=== PATIENT | female | born 1935 | race Caucasian/White ===

== ENCOUNTER 2017-06-23 10:18 | Emergency (ER) | payer OTHER, BC ==
[2017-06-23] MEDS ORDERED: RANITIDINE HCL 150 MG TABLET (FP) PO ONE (10:23)
[2017-06-23] MEDS ORDERED: predniSONE 20 MG TABLET (UD) PO ONE (10:23)
--- NOTE | 2017-06-23 10:29 | PDOC ---
History of Present Illness - General Chief Complaint: Bite Stated Complaint: BEE STING OF RIGHT HAND Time Seen by Provider: 06/23/17 10:23 History Source: Patient Exam Limitations: No Limitations - History of Present Illness Initial Comments: 06/23/17 10:25 81 yo with asthma and htn was stung by three bees on the dorsum of the right hand. More swollen and red today than last night. No associated signs or symptoms. Timing/Duration: 24 hours, intermittent Modifying Factors: improves with: other (took benadryl, used ice) Past History - Past Medical History Allergies/Adverse Reactions: Allergies Allergy/AdvReac Type Severity Reaction Status Date / Time No Known Allergies Allergy Verified 06/23/17 10:28 Home Medications: Ambulatory Orders Calcium Carbonate [Calcium] 1,000 mg PO DAILY 06/23/17 Cholecalciferol (Vitamin D3) [Vitamin D3] 2,000 unit PO DAILY 06/23/17 Hydralazine HCl 100 mg PO DAILY 06/23/17 Losartan/Hydrochlorothiazide [Losartan-Hctz 100-25 mg Tab] 1 each PO DAILY 06/23 Methylprednisolone [Medrol Dose Magdaleno] 4 mg PO ASDIR #21 tablet 06/23/17 Metoprolol Tartrate [Lopressor] 100 mg PO BID 06/23/17 Multivit-Min/FA/Lycopen/Lutein [Centrum Silver Tablet] 1 each PO DAILY 06/23/17 Ranitidine [Zantac -] 150 mg PO QID #40 tablet 06/23/17 Simvastatin [Zocor -] 20 mg PO HS 06/23/17 Review of Systems - Review of Systems Able to Perform ROS?: Yes Is the patient limited Bulgarian proficient: No Constitutional: No: Symptoms Reported HEENTM: No: Symptoms Reported Respiratory: No: Symptoms reported Cardiac (ROS): No: Symptoms Reported ABD/GI: No: Symptoms Reported : No: Symptoms Reported Musculoskeletal: No: Symptoms Reported Integumentary: Yes: See HPI Neurological: No: Symptoms reported Psychiatric: Yes: Anxiety. No: Depression Endocrine: No: Symptoms Reported Hematologic/Lymphatic: No: Symptoms Reported All Other Systems: Reviewed and Negative *Physical Exam - Physical Exam Comments: 06/23/17 10:27 VSS, NAD, ANXIOUS, HYPERTENSIVE HEENT NO ANGIOEDEMA NECK SUPPLE CHEST CTA NO WHEEZES HEART RRR, No MURMUR ABD SOFT AND BENIGN EXTR: RIGHT HAND AND FOREARM, LOCAL TISSUE REACTION TO INSECT VENOM, EXTENDS TO ELBOW, LIMB NV INTACT DISTALLY, NOT CIRCUMFRENTIAL *DC/Admit/Observation/Transfer Diagnosis at time of Disposition: Localized soft tissue swelling Insect bite Qualifiers: Encounter type: initial encounter Qualified Code(s): W57.XXXA - Bitten or stung by nonvenomous insect and other nonvenomous arthropods, initial encounter ; W57.XXXA - Bitten or stung by nonvenomous insect and other nonvenomous arthropods, initial encounter - Discharge Dispostion Disposition: HOME Condition at time of disposition: Good - Referrals Referrals: Saima Emanuel [Primary Care Provider] - - Patient Instructions Printed Discharge Instructions: DI for Insect Bites and Stings, How to Care for an Insect Bite or Sting Additional Instructions: M[facility] ANDREW MONTANO THIS HAPPENED TO YOU. This is a localized reaction to the bee venom. It may get just a little worse before it gets better. Return to us if worse or new symptoms occur. See Dr. Emanuel later this week. Take the Zantac four times a day. The Medrol is a blister pack, one less pill each day for a total of five days. You can start it tomorrow. You can also take 25 to 50mg (one or two) capsules of over the counter benadryl, especially if you have itching. Best- Dr. Jeff De Dios
[2017-06-23 10:30] VITALS: BP 163/75; PULSE 78; TEMP 99.1; BMI 25.2
[2017-06-23] MEDS ORDERED: RANITIDINE HCL 150 MG TABLET (FP) ONE (10:32)
[2017-06-23] MEDS ORDERED: predniSONE 20 MG TABLET (UD) ONE (10:32)
== END 2017-06-23 10:41 | disposition home or self-care (01) ==
LOC: FER 10:18
DX: S60.561A Insect bite (nonvenomous) of right hand, initial encounter (principal); R22.31 Localized swelling, mass and lump, right upper limb; W57.XXXA Bitten or stung by nonvenomous insect and other nonvenomous arthropods, initial encounter; Y93.9 Activity, unspecified; Y92.9 Unspecified place or not applicable; I10 Essential (primary) hypertension; F41.9 Anxiety disorder, unspecified
CPT/HCPCS: 99281-25

== ENCOUNTER 2023-07-04 13:09 | Inpatient (IN) | payer OTHER, BC ==
[2023-07-04] MEDS ORDERED: ACETAMINOPHEN 1000 MG/100 ML BAG IVPB ONE (14:23)
[2023-07-04] MEDS ORDERED: ACETAMINOPHEN INJECTION 100 ML IVPB ONE (14:40)
[2023-07-04] MEDS ORDERED: METOPROLOL TARTRATE 50 MG TABLET (FP) PO ONE (14:44)
[2023-07-04] MEDS ORDERED: hydrALAZINE HCL 50 MG TABLET (FP) PO ONE (14:45)
[2023-07-04] MEDS ORDERED: METOPROLOL TARTRATE 50 MG TABLET (FP) ONE (14:48)
[2023-07-04] MEDS ORDERED: hydrALAZINE HCL 50 MG TABLET (FP) ONE (14:48)
[2023-07-04 14:54] LABS: BASO % 0.3 % (0-2.0); EOS % 0.3 % (0-4.5); HEMATOCRIT 24.5 % (32.4-45.2); HEMOGLOBIN 8.1 GM/dL (10.7-15.3); LYMPH % 12.8 % (8-40); MCH 29.4 pg (25.7-33.7); MCHC 33.2 g/dl (32.0-36.0); MEAN CELL VOLUME 88.5 fl (80-96); MEAN PLT VOLUME 8.4 fl (7.5-11.1); MONO % 9.1 % (3.8-10.2); NEUT % 77.5 % (42.8-82.8); PLATELET COUNT 270 10^3/uL (134-434); RBC 2.77 M/mm3 (3.60-5.2); RDW 14.9 % (11.6-15.6); WHITE BLOOD COUNT 10.8 K/mm3 (4.0-10.0)
[2023-07-04 14:58] LABS: INR 1.07 (0.83-1.09); PROTHROMBIN TIME (PATIENT) 12.4 SEC (9.7-13.0)
[2023-07-04 15:00] LABS: ACTIVATED PTT 23.6 SECONDS (25.2-36.5)
[2023-07-04 15:21] LABS: POTASSIUM 3.3 mmol/L (3.5-5.1)
[2023-07-04 15:24] LABS: CALCIUM 8.6 mg/dL (8.5-10.1)
[2023-07-04 15:25] LABS: ALBUMIN 3.1 g/dl (3.4-5.0); BLOOD UREA NITROGEN 24.2 mg/dL (7-18)
[2023-07-04 15:28] LABS: CREATININE 0.9 mg/dL (0.55-1.3)
[2023-07-04 15:31] LABS: TOT PROT 6.7 g/dl (6.4-8.2)
[2023-07-04 16:58] LABS: EPI CELLS 7 /uL (0-25.1); HYALINE CASTS 0 /uL (0-3.1); URINE APPEARANCE CLEAR; URINE BACTERIA 49 /uL (0-1359); URINE BILIRUBIN NEGATIVE (NEGATIVE); URINE COLOR YELLOW; URINE GLUCOSE (UA) NEGATIVE (NEGATIVE); URINE KETONE TRACE (NEGATIVE); URINE LEUK ESTERASE NEGATIVE (NEGATIVE); URINE NITRITE NEGATIVE (NEGATIVE); URINE PROTEIN 1+ (NEGATIVE); URINE RBC 24 /uL (0-23.9); URINE WBC 7 /uL (0-25.8)
[2023-07-04] MEDS: hydrALAZINE HCL 50 MG TABLET (FP) PO SCH (21:32)
[2023-07-04] MEDS: METOPROLOL TARTRATE 50 MG TABLET (FP) PO SCH (21:33)
[2023-07-04] MEDS: ATORVASTATIN CA 10 MG TABLET (FP) PO SCH (21:33)
[2023-07-05 08:02] LABS: BASO % 0.4 % (0-2.0); EOS % 0.7 % (0-4.5); HEMATOCRIT 26.6 % (32.4-45.2); HEMOGLOBIN 8.9 GM/dL (10.7-15.3); LYMPH % 12.6 % (8-40); MCH 29.4 pg (25.7-33.7); MCHC 33.3 g/dl (32.0-36.0); MEAN CELL VOLUME 88.3 fl (80-96); MEAN PLT VOLUME 8.6 fl (7.5-11.1); MONO % 7.6 % (3.8-10.2); NEUT % 78.7 % (42.8-82.8); PLATELET COUNT 348 10^3/uL (134-434); RBC 3.01 M/mm3 (3.60-5.2); RDW 14.9 % (11.6-15.6); WHITE BLOOD COUNT 10.4 K/mm3 (4.0-10.0)
[2023-07-05 08:18] LABS: POTASSIUM 3.6 mmol/L (3.5-5.1)
[2023-07-05 08:23] LABS: ALBUMIN 3.1 g/dl (3.4-5.0); BLOOD UREA NITROGEN 21.1 mg/dL (7-18)
[2023-07-05 08:26] LABS: CREATININE 0.8 mg/dL (0.55-1.3)
[2023-07-05 08:28] LABS: BILIRUBIN,TOTAL 1.3 mg/dL (0.2-1); TOT PROT 6.7 g/dl (6.4-8.2)
[2023-07-05] MEDS ORDERED: PATIENT'S OWN MEDICATION (NON-FORMULARY) (Losartan/Hydrochlorothiazide [Losartan-Hctz 100- PO SCH (10:00)
[2023-07-05] MEDS ORDERED: FAMOTIDINE 40 MG TABLET PO SCH (10:00)
[2023-07-05] MEDS: CALCIUM (OYSTER SHELL) 500 MG TABLET (FP) PO SCH (10:09)
[2023-07-05] MEDS: METOPROLOL TARTRATE 50 MG TABLET (FP) PO SCH ×2 (10:10→21:14)
[2023-07-05] MEDS: hydrALAZINE HCL 50 MG TABLET (FP) PO SCH ×2 (10:10→21:14)
[2023-07-05] MEDS: HYDROCHLOROTHIAZIDE 25 MG TABLET (FP) PO SCH (10:11)
[2023-07-05] MEDS: MULTIVITAMINS THER W-MINERALS COMBO TABLET (FP) PO SCH (10:11)
[2023-07-05] MEDS: CHOLECALCIFEROL (VIT D3) 1,000 UNIT (25 MCG) TABLET PO SCH (10:11)
[2023-07-05] MEDS ORDERED: FAMOTIDINE 20 MG TABLET PO SCH (10:32)
[2023-07-05] MEDS: LOSARTAN POTASSIUM 50 MG TABLET PO SCH (10:56)
[2023-07-05] MEDS: FAMOTIDINE 20 MG TABLET PO SCH (16:38)
[2023-07-05] MEDS: HEPARIN NA (PORCINE) 5,000 UNITS/ML 1ML VIAL SQ SCH (21:14)
[2023-07-05] MEDS: ATORVASTATIN CA 10 MG TABLET (FP) PO SCH (21:14)
[2023-07-06] MEDS: hydrALAZINE HCL 50 MG TABLET (FP) PO SCH ×3 (05:39→21:23)
[2023-07-06] MEDS: LOSARTAN POTASSIUM 50 MG TABLET PO SCH ×2 (05:39→09:01)
[2023-07-06] MEDS: METOPROLOL TARTRATE 50 MG TABLET (FP) PO SCH ×2 (09:00→21:23)
[2023-07-06] MEDS: CALCIUM (OYSTER SHELL) 500 MG TABLET (FP) PO SCH (09:01)
[2023-07-06] MEDS: FAMOTIDINE 20 MG TABLET PO SCH (09:01)
[2023-07-06] MEDS: HEPARIN NA (PORCINE) 5,000 UNITS/ML 1ML VIAL SQ SCH ×2 (09:01→21:22)
[2023-07-06] MEDS: HYDROCHLOROTHIAZIDE 25 MG TABLET (FP) PO SCH (09:01)
[2023-07-06] MEDS: MULTIVITAMINS THER W-MINERALS COMBO TABLET (FP) PO SCH (09:01)
[2023-07-06] MEDS: CHOLECALCIFEROL (VIT D3) 1,000 UNIT (25 MCG) TABLET PO SCH (09:01)
[2023-07-06 09:13] LABS: BASO % 0.2 % (0-2.0); EOS % 0.3 % (0-4.5); HEMATOCRIT 28.6 % (32.4-45.2); HEMOGLOBIN 9.6 GM/dL (10.7-15.3); MCH 29.1 pg (25.7-33.7); MCHC 33.5 g/dl (32.0-36.0); MEAN CELL VOLUME 86.8 fl (80-96); MEAN PLT VOLUME 8.6 fl (7.5-11.1); MONO % 7.8 % (3.8-10.2); NEUT % 80.7 % (42.8-82.8); PLATELET COUNT 393 10^3/uL (134-434); RDW 14.7 % (11.6-15.6); WHITE BLOOD COUNT 13.9 K/mm3 (4.0-10.0)
[2023-07-06 09:38] LABS: POTASSIUM 3.3 mmol/L (3.5-5.1)
[2023-07-06 09:40] LABS: CALCIUM 9.2 mg/dL (8.5-10.1)
[2023-07-06 09:41] LABS: ALBUMIN 3.2 g/dl (3.4-5.0); BLOOD UREA NITROGEN 22.7 mg/dL (7-18)
[2023-07-06 09:46] LABS: TOT PROT 7.1 g/dl (6.4-8.2)
[2023-07-06 09:47] LABS: BILIRUBIN,TOTAL 1.8 mg/dL (0.2-1)
[2023-07-06] MEDS: CEPHALEXIN MONOHYDRATE 500 MG CAPSULE (UD) PO SCH ×2 (13:48→21:23)
[2023-07-06] MEDS: POTASSIUM CHLORIDE TABS 10 MEQ TABLET.ER (FP) PO SCH (14:49)
[2023-07-06] MEDS: ATORVASTATIN CA 10 MG TABLET (FP) PO SCH (21:23)
[2023-07-07] MEDS: ACETAMINOPHEN 325 MG TABLET (FP) PO PRN (04:02)
[2023-07-07] MEDS: CEPHALEXIN MONOHYDRATE 500 MG CAPSULE (UD) PO SCH ×3 (05:30→21:09)
[2023-07-07 08:39] LABS: POTASSIUM 3.3 mmol/L (3.5-5.1)
[2023-07-07 08:56] LABS: CALCIUM 9.1 mg/dL (8.5-10.1)
[2023-07-07 08:57] LABS: ALBUMIN 2.9 g/dl (3.4-5.0); BLOOD UREA NITROGEN 21.2 mg/dL (7-18)
[2023-07-07 08:58] LABS: BASO % 0.3 % (0-2.0); EOS % 0.1 % (0-4.5); HEMATOCRIT 27.4 % (32.4-45.2); LYMPH % 7.5 % (8-40); MCH 28.8 pg (25.7-33.7); MCHC 32.7 g/dl (32.0-36.0); MEAN CELL VOLUME 88.2 fl (80-96); MEAN PLT VOLUME 8.8 fl (7.5-11.1); MONO % 9.8 % (3.8-10.2); NEUT % 82.3 % (42.8-82.8); PLATELET COUNT 389 10^3/uL (134-434); RDW 14.8 % (11.6-15.6); WHITE BLOOD COUNT 15.1 K/mm3 (4.0-10.0)
[2023-07-07 09:00] LABS: CREATININE 0.8 mg/dL (0.55-1.3)
[2023-07-07] MEDS: CHOLECALCIFEROL (VIT D3) 1,000 UNIT (25 MCG) TABLET PO SCH (09:00)
[2023-07-07 09:01] LABS: BILIRUBIN,TOTAL 1.1 mg/dL (0.2-1); TOT PROT 6.7 g/dl (6.4-8.2)
[2023-07-07] MEDS: FAMOTIDINE 20 MG TABLET PO SCH (09:01)
[2023-07-07] MEDS: METOPROLOL TARTRATE 50 MG TABLET (FP) PO SCH ×2 (09:01→21:09)
[2023-07-07] MEDS: hydrALAZINE HCL 50 MG TABLET (FP) PO SCH ×2 (09:02→21:09)
[2023-07-07] MEDS: POTASSIUM CHLORIDE TABS 10 MEQ TABLET.ER (FP) PO SCH ×2 (09:02→21:09)
[2023-07-07] MEDS: CALCIUM (OYSTER SHELL) 500 MG TABLET (FP) PO SCH (09:02)
[2023-07-07] MEDS: LOSARTAN POTASSIUM 50 MG TABLET PO SCH (09:02)
[2023-07-07] MEDS: MULTIVITAMINS THER W-MINERALS COMBO TABLET (FP) PO SCH (09:03)
[2023-07-07] MEDS: HYDROCHLOROTHIAZIDE 25 MG TABLET (FP) PO SCH (09:03)
[2023-07-07] MEDS: HEPARIN NA (PORCINE) 5,000 UNITS/ML 1ML VIAL SQ SCH ×2 (09:04→21:09)
[2023-07-07] MEDS: ATORVASTATIN CA 10 MG TABLET (FP) PO SCH (21:09)
[2023-07-08] MEDS: ACETAMINOPHEN 325 MG TABLET (FP) PO PRN (02:25)
[2023-07-08] MEDS: CEPHALEXIN MONOHYDRATE 500 MG CAPSULE (UD) PO SCH (05:56)
[2023-07-08 08:15] LABS: BASO % 0.2 % (0-2.0); EOS % 0.1 % (0-4.5); HEMATOCRIT 28.8 % (32.4-45.2); HEMOGLOBIN 9.7 GM/dL (10.7-15.3); LYMPH % 10.5 % (8-40); MCH 29.1 pg (25.7-33.7); MCHC 33.7 g/dl (32.0-36.0); MEAN CELL VOLUME 86.5 fl (80-96); MONO % 10.6 % (3.8-10.2); NEUT % 78.6 % (42.8-82.8); PLATELET COUNT 444 10^3/uL (134-434); RBC 3.33 M/mm3 (3.60-5.2); RDW 14.7 % (11.6-15.6); WHITE BLOOD COUNT 17.7 K/mm3 (4.0-10.0)
[2023-07-08 08:26] LABS: POTASSIUM 3.6 mmol/L (3.5-5.1)
[2023-07-08 08:41] LABS: CALCIUM 9.7 mg/dL (8.5-10.1)
[2023-07-08] MEDS: CHOLECALCIFEROL (VIT D3) 1,000 UNIT (25 MCG) TABLET PO SCH (09:41)
[2023-07-08] MEDS: METOPROLOL TARTRATE 50 MG TABLET (FP) PO SCH ×2 (09:41→22:04)
[2023-07-08] MEDS: POTASSIUM CHLORIDE TABS 10 MEQ TABLET.ER (FP) PO SCH ×2 (09:41→22:04)
[2023-07-08] MEDS: CALCIUM (OYSTER SHELL) 500 MG TABLET (FP) PO SCH (09:41)
[2023-07-08] MEDS: FAMOTIDINE 20 MG TABLET PO SCH (09:41)
[2023-07-08] MEDS: LOSARTAN POTASSIUM 50 MG TABLET PO SCH (09:42)
[2023-07-08] MEDS: HEPARIN NA (PORCINE) 5,000 UNITS/ML 1ML VIAL SQ SCH ×2 (09:42→22:05)
[2023-07-08] MEDS: MULTIVITAMINS THER W-MINERALS COMBO TABLET (FP) PO SCH (09:42)
[2023-07-08] MEDS: hydrALAZINE HCL 50 MG TABLET (FP) PO SCH ×2 (09:42→22:04)
[2023-07-08] MEDS: HYDROCHLOROTHIAZIDE 25 MG TABLET (FP) PO SCH (09:42)
[2023-07-08] MEDS ORDERED: CEFTRIAXONE 1 GM in DEXTROSE 5%-WATER - 50 ML IVPB SCH (10:00)
[2023-07-08] MEDS ORDERED: POTASSIUM CHLORIDE ORAL LIQUID 20 MEQ/15 ML PO ONE (14:30)
[2023-07-08] MEDS ORDERED: SODIUM CHLORIDE 1,000 ML IV SCH (14:30)
[2023-07-08 18:10] LABS: EPI CELLS 11 /uL (0-25.1); HYALINE CASTS 0 /uL (0-3.1); PH,URINE 6.5 (5.0-8.0); URINE APPEARANCE CLEAR; URINE BACTERIA 9 /uL (0-1359); URINE BILIRUBIN NEGATIVE (NEGATIVE); URINE COLOR YELLOW; URINE GLUCOSE (UA) NEGATIVE (NEGATIVE); URINE KETONE NEGATIVE (NEGATIVE); URINE LEUK ESTERASE TRACE (NEGATIVE); URINE NITRITE NEGATIVE (NEGATIVE); URINE PROTEIN 1+ (NEGATIVE); URINE RBC 14 /uL (0-23.9); URINE WBC 27 /uL (0-25.8)
[2023-07-08] MEDS: PIPERACILLIN/TAZOB 2.25 GM 2.25 GM in DEXTROSE 5%-WATER - 50 ML IVPB SCH (18:26)
[2023-07-08] MEDS: ATORVASTATIN CA 10 MG TABLET (FP) PO SCH (22:04)
[2023-07-09] MEDS: PIPERACILLIN/TAZOB 2.25 GM 2.25 GM in DEXTROSE 5%-WATER - 50 ML IVPB SCH ×3 (01:19→17:11)
[2023-07-09 08:25] LABS: ALBUMIN 2.8 g/dl (3.4-5.0); BLOOD UREA NITROGEN 25.9 mg/dL (7-18); CALCIUM 9.5 mg/dL (8.5-10.1)
[2023-07-09 08:30] LABS: BILIRUBIN,TOTAL 1.2 mg/dL (0.2-1); TOT PROT 6.8 g/dl (6.4-8.2)
[2023-07-09] MEDS ORDERED: SODIUM CHLORIDE 1 GM TABLET PO ONE (09:45)
[2023-07-09] MEDS: CHOLECALCIFEROL (VIT D3) 1,000 UNIT (25 MCG) TABLET PO SCH (10:10)
[2023-07-09] MEDS: METOPROLOL TARTRATE 50 MG TABLET (FP) PO SCH ×2 (10:10→22:17)
[2023-07-09] MEDS: HEPARIN NA (PORCINE) 5,000 UNITS/ML 1ML VIAL SQ SCH ×2 (10:10→22:17)
[2023-07-09] MEDS: CALCIUM (OYSTER SHELL) 500 MG TABLET (FP) PO SCH (10:10)
[2023-07-09] MEDS: POTASSIUM CHLORIDE TABS 10 MEQ TABLET.ER (FP) PO SCH ×2 (10:10→22:17)
[2023-07-09] MEDS: FAMOTIDINE 20 MG TABLET PO SCH (10:10)
[2023-07-09] MEDS: LOSARTAN POTASSIUM 50 MG TABLET PO SCH (10:10)
[2023-07-09] MEDS: MULTIVITAMINS THER W-MINERALS COMBO TABLET (FP) PO SCH (10:11)
[2023-07-09] MEDS: hydrALAZINE HCL 50 MG TABLET (FP) PO SCH ×2 (10:11→22:17)
[2023-07-09] MEDS: POLYETHYLENE GLYCOL (HEALTHYLAX) 3350 17 GM PACKET PO SCH (13:56)
[2023-07-09] MEDS: ATORVASTATIN CA 10 MG TABLET (FP) PO SCH (22:17)
[2023-07-09] MEDS ORDERED: PHYTONADIONE 10 MG/1 ML AMP IM ONE (23:27)
[2023-07-10] MEDS ORDERED: PHYTONADIONE 10 MG/1 ML AMP IM ONE (00:15)
[2023-07-10] MEDS: PIPERACILLIN/TAZOB 2.25 GM 2.25 GM in DEXTROSE 5%-WATER - 50 ML IVPB SCH ×3 (03:34→17:57)
[2023-07-10 08:21] LABS: BASO % 0.4 % (0-2.0); EOS % 0.7 % (0-4.5); HEMATOCRIT 27.2 % (32.4-45.2); HEMOGLOBIN 9.2 GM/dL (10.7-15.3); LYMPH % 13.2 % (8-40); MCH 29.1 pg (25.7-33.7); MCHC 33.6 g/dl (32.0-36.0); MEAN CELL VOLUME 86.5 fl (80-96); MEAN PLT VOLUME 9.1 fl (7.5-11.1); MONO % 8.4 % (3.8-10.2); NEUT % 77.3 % (42.8-82.8); PLATELET COUNT 549 10^3/uL (134-434); RBC 3.15 M/mm3 (3.60-5.2); RDW 14.4 % (11.6-15.6); WHITE BLOOD COUNT 13.1 K/mm3 (4.0-10.0)
[2023-07-10] MEDS: LOSARTAN POTASSIUM 50 MG TABLET PO SCH (09:34)
[2023-07-10] MEDS: CALCIUM (OYSTER SHELL) 500 MG TABLET (FP) PO SCH (09:34)
[2023-07-10] MEDS: FAMOTIDINE 20 MG TABLET PO SCH (09:35)
[2023-07-10] MEDS: POTASSIUM CHLORIDE TABS 10 MEQ TABLET.ER (FP) PO SCH ×2 (09:35→21:56)
[2023-07-10] MEDS: POLYETHYLENE GLYCOL (HEALTHYLAX) 3350 17 GM PACKET PO SCH (09:35)
[2023-07-10] MEDS: MULTIVITAMINS THER W-MINERALS COMBO TABLET (FP) PO SCH (09:35)
[2023-07-10] MEDS: hydrALAZINE HCL 50 MG TABLET (FP) PO SCH ×2 (09:35→21:56)
[2023-07-10] MEDS: METOPROLOL TARTRATE 50 MG TABLET (FP) PO SCH ×2 (09:35→21:56)
[2023-07-10] MEDS: CHOLECALCIFEROL (VIT D3) 1,000 UNIT (25 MCG) TABLET PO SCH (09:35)
[2023-07-10 10:09] LABS: POTASSIUM 4.2 mmol/L (3.5-5.1)
[2023-07-10 10:11] LABS: CALCIUM 9.6 mg/dL (8.5-10.1)
[2023-07-10 10:12] LABS: ALBUMIN 2.8 g/dl (3.4-5.0); BLOOD UREA NITROGEN 20.1 mg/dL (7-18)
[2023-07-10 10:16] LABS: BILIRUBIN,TOTAL 1.1 mg/dL (0.2-1)
[2023-07-10 10:26] LABS: CREATININE 1.1 mg/dL (0.55-1.3)
[2023-07-10] MEDS: SODIUM CHLORIDE 1 GM TABLET PO SCH ×2 (12:24→21:56)
[2023-07-10] MEDS: ATORVASTATIN CA 10 MG TABLET (FP) PO SCH (21:55)
[2023-07-11] MEDS: PIPERACILLIN/TAZOB 2.25 GM 2.25 GM in DEXTROSE 5%-WATER - 50 ML IVPB SCH ×3 (02:24→18:54)
[2023-07-11] MEDS: BANATROL PLUS POWDER PACKET PO SCH ×4 (06:40→21:45)
[2023-07-11 08:27] LABS: BASO % 0.5 % (0-2.0); EOS % 0.9 % (0-4.5); HEMATOCRIT 25.6 % (32.4-45.2); HEMOGLOBIN 8.9 GM/dL (10.7-15.3); LYMPH % 16.3 % (8-40); MCH 29.7 pg (25.7-33.7); MCHC 34.8 g/dl (32.0-36.0); MEAN CELL VOLUME 85.4 fl (80-96); MEAN PLT VOLUME 8.7 fl (7.5-11.1); MONO % 9.1 % (3.8-10.2); NEUT % 73.2 % (42.8-82.8); PLATELET COUNT 527 10^3/uL (134-434); RDW 14.4 % (11.6-15.6); WHITE BLOOD COUNT 10.8 K/mm3 (4.0-10.0)
[2023-07-11 08:32] LABS: POTASSIUM 4.4 mmol/L (3.5-5.1)
[2023-07-11 08:38] LABS: ALBUMIN 2.8 g/dl (3.4-5.0); BLOOD UREA NITROGEN 15.4 mg/dL (7-18); CALCIUM 9.3 mg/dL (8.5-10.1)
[2023-07-11 08:43] LABS: BILIRUBIN,TOTAL 1.1 mg/dL (0.2-1); TOT PROT 6.7 g/dl (6.4-8.2)
[2023-07-11] MEDS: POTASSIUM CHLORIDE TABS 10 MEQ TABLET.ER (FP) PO SCH ×2 (09:28→21:48)
[2023-07-11] MEDS: METOPROLOL TARTRATE 50 MG TABLET (FP) PO SCH ×2 (09:29→21:47)
[2023-07-11] MEDS: CALCIUM (OYSTER SHELL) 500 MG TABLET (FP) PO SCH (09:29)
[2023-07-11] MEDS: hydrALAZINE HCL 50 MG TABLET (FP) PO SCH ×2 (09:29→21:46)
[2023-07-11] MEDS: FAMOTIDINE 20 MG TABLET PO SCH (09:29)
[2023-07-11] MEDS: LOSARTAN POTASSIUM 50 MG TABLET PO SCH (09:29)
[2023-07-11] MEDS: CHOLECALCIFEROL (VIT D3) 1,000 UNIT (25 MCG) TABLET PO SCH (09:29)
[2023-07-11] MEDS: SODIUM CHLORIDE 1 GM TABLET PO SCH ×2 (09:29→21:49)
[2023-07-11] MEDS: POLYETHYLENE GLYCOL (HEALTHYLAX) 3350 17 GM PACKET PO SCH (09:30)
[2023-07-11] MEDS: MULTIVITAMINS THER W-MINERALS COMBO TABLET (FP) PO SCH (09:30)
[2023-07-11] MEDS: ATORVASTATIN CA 10 MG TABLET (FP) PO SCH (21:48)
[2023-07-12] MEDS: PIPERACILLIN/TAZOB 2.25 GM 2.25 GM in DEXTROSE 5%-WATER - 50 ML IVPB SCH ×3 (03:21→17:06)
[2023-07-12] MEDS: BANATROL PLUS POWDER PACKET PO SCH ×2 (07:15→14:24)
[2023-07-12 07:18] LABS: HEMATOCRIT 25.9 % (32.4-45.2); HEMOGLOBIN 8.2 GM/dL (10.7-15.3); MCH 27.7 pg (25.7-33.7); MCHC 31.5 g/dl (32.0-36.0); MEAN CELL VOLUME 88.1 fl (80-96); MEAN PLT VOLUME 8.5 fl (7.5-11.1); PLATELET COUNT 513 10^3/uL (134-434); RBC 2.94 M/mm3 (3.60-5.2); RDW 14.4 % (11.6-15.6); WHITE BLOOD COUNT 13.2 K/mm3 (4.0-10.0)
[2023-07-12 08:06] LABS: POTASSIUM 4.7 mmol/L (3.5-5.1)
[2023-07-12 08:16] LABS: CALCIUM 9.3 mg/dL (8.5-10.1)
[2023-07-12 08:17] LABS: ALBUMIN 2.8 g/dl (3.4-5.0)
[2023-07-12 08:20] LABS: CREATININE 0.9 mg/dL (0.55-1.3)
[2023-07-12 08:21] LABS: BILIRUBIN,TOTAL 0.9 mg/dL (0.2-1); TOT PROT 6.4 g/dl (6.4-8.2)
[2023-07-12 08:57] LABS: ANISOCYTOSIS 2+; MACROCYTOSIS 0
[2023-07-12] MEDS: CALCIUM (OYSTER SHELL) 500 MG TABLET (FP) PO SCH (10:57)
[2023-07-12] MEDS: hydrALAZINE HCL 50 MG TABLET (FP) PO SCH ×2 (10:57→22:03)
[2023-07-12] MEDS: POLYETHYLENE GLYCOL (HEALTHYLAX) 3350 17 GM PACKET PO SCH (10:57)
[2023-07-12] MEDS: METOPROLOL TARTRATE 50 MG TABLET (FP) PO SCH ×2 (10:57→22:03)
[2023-07-12] MEDS: MULTIVITAMINS THER W-MINERALS COMBO TABLET (FP) PO SCH (10:58)
[2023-07-12] MEDS: POTASSIUM CHLORIDE TABS 10 MEQ TABLET.ER (FP) PO SCH ×2 (10:58→11:07)
[2023-07-12] MEDS: SODIUM CHLORIDE 1 GM TABLET PO SCH ×2 (10:58→11:07)
[2023-07-12] MEDS: CHOLECALCIFEROL (VIT D3) 1,000 UNIT (25 MCG) TABLET PO SCH (10:58)
[2023-07-12] MEDS: FAMOTIDINE 20 MG TABLET PO SCH (10:58)
[2023-07-12] MEDS: LOSARTAN POTASSIUM 50 MG TABLET PO SCH (10:58)
[2023-07-12] MEDS: ATORVASTATIN CA 10 MG TABLET (FP) PO SCH (22:03)
[2023-07-12] MEDS: ACETAMINOPHEN 325 MG TABLET (FP) PO PRN (22:04)
[2023-07-13] MEDS: BANATROL PLUS POWDER PACKET PO SCH ×4 (02:22→21:44)
[2023-07-13] MEDS: PIPERACILLIN/TAZOB 2.25 GM 2.25 GM in DEXTROSE 5%-WATER - 50 ML IVPB SCH ×3 (02:23→17:31)
[2023-07-13 07:42] LABS: BASO % 0.6 % (0-2.0); EOS % 1.4 % (0-4.5); HEMATOCRIT 25.4 % (32.4-45.2); HEMOGLOBIN 8.3 GM/dL (10.7-15.3); LYMPH % 12.8 % (8-40); MCH 28.9 pg (25.7-33.7); MCHC 32.8 g/dl (32.0-36.0); MEAN PLT VOLUME 8.3 fl (7.5-11.1); MONO % 6.7 % (3.8-10.2); NEUT % 78.5 % (42.8-82.8); PLATELET COUNT 565 10^3/uL (134-434); RBC 2.89 M/mm3 (3.60-5.2); RDW 14.7 % (11.6-15.6); WHITE BLOOD COUNT 12.6 K/mm3 (4.0-10.0)
[2023-07-13 07:58] LABS: POTASSIUM 4.5 mmol/L (3.5-5.1)
[2023-07-13 08:01] LABS: ALBUMIN 2.9 g/dl (3.4-5.0); CALCIUM 9.6 mg/dL (8.5-10.1)
[2023-07-13 08:02] LABS: BLOOD UREA NITROGEN 12.7 mg/dL (7-18)
[2023-07-13 08:05] LABS: CREATININE 1.1 mg/dL (0.55-1.3)
[2023-07-13 08:06] LABS: TOT PROT 6.8 g/dl (6.4-8.2)
[2023-07-13] MEDS: METOPROLOL TARTRATE 50 MG TABLET (FP) PO SCH ×2 (10:53→21:44)
[2023-07-13] MEDS: CHOLECALCIFEROL (VIT D3) 1,000 UNIT (25 MCG) TABLET PO SCH (10:53)
[2023-07-13] MEDS: CALCIUM (OYSTER SHELL) 500 MG TABLET (FP) PO SCH (10:53)
[2023-07-13] MEDS: LOSARTAN POTASSIUM 50 MG TABLET PO SCH (10:54)
[2023-07-13] MEDS: MULTIVITAMINS THER W-MINERALS COMBO TABLET (FP) PO SCH (10:54)
[2023-07-13] MEDS: FAMOTIDINE 20 MG TABLET PO SCH (10:54)
[2023-07-13] MEDS: hydrALAZINE HCL 50 MG TABLET (FP) PO SCH ×2 (10:54→21:44)
[2023-07-13] MEDS: POLYETHYLENE GLYCOL (HEALTHYLAX) 3350 17 GM PACKET PO SCH (10:55)
[2023-07-13 21:24] VITALS: BMI 25.3
[2023-07-13] MEDS: ATORVASTATIN CA 10 MG TABLET (FP) PO SCH (21:45)
[2023-07-14] MEDS: PIPERACILLIN/TAZOB 2.25 GM 2.25 GM in DEXTROSE 5%-WATER - 50 ML IVPB SCH ×3 (05:45→17:56)
[2023-07-14] MEDS: BANATROL PLUS POWDER PACKET PO SCH ×3 (05:47→21:16)
[2023-07-14] MEDS: METOPROLOL TARTRATE 50 MG TABLET (FP) PO SCH ×2 (09:36→21:16)
[2023-07-14] MEDS: CALCIUM (OYSTER SHELL) 500 MG TABLET (FP) PO SCH (09:37)
[2023-07-14] MEDS: hydrALAZINE HCL 50 MG TABLET (FP) PO SCH ×2 (09:37→21:16)
[2023-07-14] MEDS: MULTIVITAMINS THER W-MINERALS COMBO TABLET (FP) PO SCH (09:37)
[2023-07-14] MEDS: FAMOTIDINE 20 MG TABLET PO SCH (09:37)
[2023-07-14] MEDS: LOSARTAN POTASSIUM 50 MG TABLET PO SCH (09:37)
[2023-07-14] MEDS: POLYETHYLENE GLYCOL (HEALTHYLAX) 3350 17 GM PACKET PO SCH (09:37)
[2023-07-14] MEDS: CHOLECALCIFEROL (VIT D3) 1,000 UNIT (25 MCG) TABLET PO SCH (09:37)
[2023-07-14] MEDS: ATORVASTATIN CA 10 MG TABLET (FP) PO SCH (21:16)
[2023-07-15] MEDS: PIPERACILLIN/TAZOB 2.25 GM 2.25 GM in DEXTROSE 5%-WATER - 50 ML IVPB SCH ×2 (02:19→09:14)
[2023-07-15] MEDS: BANATROL PLUS POWDER PACKET PO SCH ×3 (06:00→21:16)
[2023-07-15 07:35] LABS: BASO % 0.8 % (0-2.0); EOS % 1.3 % (0-4.5); HEMATOCRIT 26.9 % (32.4-45.2); HEMOGLOBIN 8.8 GM/dL (10.7-15.3); LYMPH % 11.1 % (8-40); MCH 28.9 pg (25.7-33.7); MCHC 32.6 g/dl (32.0-36.0); MEAN CELL VOLUME 88.7 fl (80-96); MEAN PLT VOLUME 8.1 fl (7.5-11.1); MONO % 7.6 % (3.8-10.2); NEUT % 79.2 % (42.8-82.8); PLATELET COUNT 562 10^3/uL (134-434); RBC 3.03 M/mm3 (3.60-5.2); RDW 14.9 % (11.6-15.6); WHITE BLOOD COUNT 12.8 K/mm3 (4.0-10.0)
[2023-07-15 07:53] LABS: POTASSIUM 4.3 mmol/L (3.5-5.1)
[2023-07-15 08:00] LABS: BLOOD UREA NITROGEN 15.7 mg/dL (7-18); CALCIUM 9.1 mg/dL (8.5-10.1)
[2023-07-15 08:01] LABS: ALBUMIN 2.9 g/dl (3.4-5.0)
[2023-07-15 08:03] LABS: CREATININE 1.3 mg/dL (0.55-1.3); TOT PROT 6.9 g/dl (6.4-8.2)
[2023-07-15] MEDS: POLYETHYLENE GLYCOL (HEALTHYLAX) 3350 17 GM PACKET PO SCH (09:09)
[2023-07-15] MEDS: METOPROLOL TARTRATE 50 MG TABLET (FP) PO SCH ×2 (09:09→21:16)
[2023-07-15] MEDS: FAMOTIDINE 20 MG TABLET PO SCH (09:10)
[2023-07-15] MEDS: CALCIUM (OYSTER SHELL) 500 MG TABLET (FP) PO SCH (09:10)
[2023-07-15] MEDS: MULTIVITAMINS THER W-MINERALS COMBO TABLET (FP) PO SCH (09:10)
[2023-07-15] MEDS: hydrALAZINE HCL 50 MG TABLET (FP) PO SCH ×2 (09:11→21:16)
[2023-07-15] MEDS: CHOLECALCIFEROL (VIT D3) 1,000 UNIT (25 MCG) TABLET PO SCH (09:11)
[2023-07-15] MEDS: LOSARTAN POTASSIUM 50 MG TABLET PO SCH (09:11)
[2023-07-15] MEDS: ATORVASTATIN CA 10 MG TABLET (FP) PO SCH (21:16)
[2023-07-15 21:19] VITALS: BP 151/80; PULSE 82; RESP 20; TEMP 98.5
== END 2023-07-15 23:25 | DRG 964 ==
LOC: JER 13:09 → JERBED 15:39 → J4W 20:22 → J7W 07-08 20:25 → JERBED 07-08 20:58 → J4W 07-08 21:28
PROVIDERS: ADMIT Internal Medicine; ATTEND Internal Medicine
DX: S32.501A Unspecified fracture of right pubis, initial encounter for closed fracture (principal); S36.892A Contusion of other intra-abdominal organs, initial encounter; E87.1 Hypo-osmolality and hyponatremia; S32.000A Wedge compression fracture of unspecified lumbar vertebra, initial encounter for closed fracture; S32.10XA Unspecified fracture of sacrum, initial encounter for closed fracture; I11.9 Hypertensive heart disease without heart failure; E78.5 Hyperlipidemia, unspecified; D72.829 Elevated white blood cell count, unspecified; D75.839 Thrombocytosis, unspecified; W19.XXXA Unspecified fall, initial encounter; Y93.9 Activity, unspecified; Y92.89 Other specified places as the place of occurrence of the external cause; Y99.9 Unspecified external cause status
CPT/HCPCS: 0241U-QW; 36415; 70450-TC; 71045-TC-FY; 72100-TC-FY; 72125-TC; 72131-TC; 72170-TC-FY; 73502-TC-RT-FY; 73562-TC-RT-FY; 74176-TC; 80048; 80053; 80061; 81003; 82436; 83930; 83935; 84133; 84155; 84165; 84300; 84484; 85025; 85610; 85730; 86850; 86900; 86901; 87040; 87086; 87635; 93005; 93010; 97116-GP; 97162-GP; 99285-25; J1644

== ENCOUNTER 2023-12-30 12:19 | Inpatient (IN) | payer OTHER, BC ==
[2023-12-30] MEDS ORDERED: ALBUTEROL SO4 2.5/IPRATROPIUM 0.5 INH SOL 3 ML VIAL.NEB. NEB ONE ×2 (13:41→13:43)
[2023-12-30] MEDS: ALBUTEROL SO4 2.5/IPRATROPIUM 0.5 INH SOL 3 ML VIAL.NEB. NEB SCH (13:44)
[2023-12-30] MEDS ORDERED: ACETAMINOPHEN INJECTION 100 ML IVPB ONE (14:03)
[2023-12-30] MEDS: ACETAMINOPHEN 1000 MG/100 ML BAG IVPB ONE (14:36)
[2023-12-30 14:51] LABS: BASO % 0.1 % (0-2.0); HEMATOCRIT 25.3 % (32.4-45.2); HEMOGLOBIN 8.5 GM/dL (10.7-15.3); MCHC 33.4 g/dl (32.0-36.0); MEAN PLT VOLUME 8.5 fl (7.5-11.1); MONO % 7.4 % (3.8-10.2); NEUT % 82.5 % (42.8-82.8); PLATELET COUNT 272 10^3/uL (134-434); RBC 2.91 M/mm3 (3.60-5.2); RDW 15.7 % (11.6-15.6); WHITE BLOOD COUNT 15.3 K/mm3 (4.0-10.0)
[2023-12-30 15:09] LABS: POTASSIUM 3.4 mmol/L (3.5-5.1)
[2023-12-30 15:12] LABS: ALBUMIN 3.1 g/dl (3.4-5.0); CALCIUM 9.5 mg/dL (8.5-10.1)
[2023-12-30 15:13] LABS: BLOOD UREA NITROGEN 28.5 mg/dL (7-18)
[2023-12-30 15:15] LABS: CREATININE 1.1 mg/dL (0.55-1.3)
[2023-12-30 15:17] LABS: BILIRUBIN,TOTAL 0.8 mg/dL (0.2-1); TOT PROT 6.8 g/dl (6.4-8.2)
[2023-12-30] MEDS ORDERED: LACTATED RINGERS SOLUTION 1,000 ML/1,000 ML INFUS.BAG IV SCH (17:00)
[2023-12-30 17:37] LABS: INR 1.06 (0.83-1.09)
[2023-12-30 18:42] VITALS: BMI 24.0
[2023-12-30] MEDS: LACTATED RINGERS SOLUTION 1,000 ML/1,000 ML INFUS.BAG IV SCH (18:47)
[2023-12-30] MEDS ORDERED: PROPOFOL 20 ML ONE (19:24)
[2023-12-30] MEDS ORDERED: FENTANYL CITRATE/PF 50 MCG/ML VIAL ONE (19:46)
[2023-12-30] MEDS ORDERED: MIDAZOLAM HCL 2 MG/2 ML SINGLE DOSE VIAL ONE (19:51)
[2023-12-30] MEDS: ceFAZolin SODIUM 1 GM VIAL IVPB ONE (20:00)
[2023-12-30] MEDS ORDERED: ONDANSETRON 4 MG/2 ML VIAL IVPUSH PRN (21:13)
[2023-12-30] MEDS: DOCUSATE SODIUM 100 MG CAPSULE (FP) PO SCH (21:35)
[2023-12-30] MEDS: hydrALAZINE HCL 50 MG TABLET (FP) PO SCH (21:35)
[2023-12-30] MEDS: ATORVASTATIN CA 10 MG TABLET (FP) PO SCH (21:35)
[2023-12-30] MEDS ORDERED: hydrALAZINE HCL 50 MG TABLET (FP) PO SCH (22:00)
[2023-12-30] MEDS ORDERED: ATORVASTATIN CA 10 MG TABLET (FP) PO SCH (22:00)
[2023-12-30] MEDS: oxyCODONE HCL 5 MG TABLET PO PRN (23:54)
[2023-12-30] MEDS: LACTATED RINGERS SOLUTION 1,000 ML IV SCH (23:57)
[2023-12-31] MEDS: CEFAZOLIN 1 GM in DEXTROSE 5%-WATER - 50 ML IVPB SCH (01:55)
[2023-12-31] MEDS: ACETAMINOPHEN 325 MG TABLET (FP) PO PRN (06:46)
[2023-12-31 08:28] LABS: POTASSIUM 3.3 mmol/L (3.5-5.1)
[2023-12-31 08:30] LABS: CALCIUM 9.1 mg/dL (8.5-10.1)
[2023-12-31 08:31] LABS: ALBUMIN 2.7 g/dl (3.4-5.0); BLOOD UREA NITROGEN 24.1 mg/dL (7-18)
[2023-12-31 08:32] LABS: BASO % 0.2 % (0-2.0); HEMATOCRIT 23.2 % (32.4-45.2); HEMOGLOBIN 7.5 GM/dL (10.7-15.3); LYMPH % 5.5 % (8-40); MCH 28.5 pg (25.7-33.7); MCHC 32.3 g/dl (32.0-36.0); MEAN CELL VOLUME 88.2 fl (80-96); MEAN PLT VOLUME 8.7 fl (7.5-11.1); MONO % 7.8 % (3.8-10.2); NEUT % 86.5 % (42.8-82.8); PLATELET COUNT 274 10^3/uL (134-434); RBC 2.64 M/mm3 (3.60-5.2); RDW 15.2 % (11.6-15.6); WHITE BLOOD COUNT 13.8 K/mm3 (4.0-10.0)
[2023-12-31 08:33] LABS: CREATININE 0.9 mg/dL (0.55-1.3)
[2023-12-31 08:35] LABS: BILIRUBIN,TOTAL 0.8 mg/dL (0.2-1); TOT PROT 6.1 g/dl (6.4-8.2)
[2023-12-31] MEDS: CELECOXIB 200 MG CAPSULE PO SCH (09:49)
[2023-12-31] MEDS: CHOLECALCIFEROL (VIT D3) 1,000 UNIT (25 MCG) TABLET PO SCH (09:49)
[2023-12-31] MEDS: ENOXAPARIN NA (PORCINE) 40 MG/0.4 ML DISP.SYRIN SQ SCH (09:50)
[2023-12-31] MEDS: LOSARTAN POTASSIUM 50 MG TABLET PO SCH (09:50)
[2023-12-31] MEDS ORDERED: LOSARTAN POTASSIUM 50 MG TABLET PO SCH (10:00)
[2023-12-31 10:28] LABS: EPI CELLS 6 /uL (0-25.1); HYALINE CASTS 0 /uL (0-3.1); PH,URINE 5.5 (5.0-8.0); URINE APPEARANCE CLEAR; URINE BACTERIA 19 /uL (0-1359); URINE BILIRUBIN NEGATIVE (NEGATIVE); URINE COLOR YELLOW; URINE GLUCOSE (UA) NEGATIVE (NEGATIVE); URINE KETONE NEGATIVE (NEGATIVE); URINE LEUK ESTERASE NEGATIVE (NEGATIVE); URINE NITRITE NEGATIVE (NEGATIVE); URINE PROTEIN 2+ (NEGATIVE); URINE RBC 20 /uL (0-23.9); URINE UROBILINOGEN 0.2 mg/dL (0.2-1.0); URINE WBC 7 /uL (0-25.8)
[2023-12-31 12:54] LABS: YEAST NONE SEEN (NEGATIVE)
[2023-12-31] MEDS: ONDANSETRON 4 MG/2 ML VIAL IVPUSH ONE (14:18)
[2023-12-31] MEDS: POTASSIUM CHLORIDE TABS 20 MEQ TABLET.ER (FP) PO ONE (14:46)
[2023-12-31] MEDS ORDERED: ONDANSETRON 4 MG/2 ML VIAL IVPUSH PRN (19:48)
[2023-12-31] MEDS ORDERED: TRIMETHOBENZAMIDE HCL 200MG/2ML INJ IM PRN (19:49)
[2024-01-01] MEDS ORDERED: oxyCODONE HCL 5 MG TABLET PO PRN (06:18)
[2024-01-01 09:50] LABS: BASO % 0.2 % (0-2.0); EOS % 0.4 % (0-4.5); HEMATOCRIT 22.6 % (32.4-45.2); HEMOGLOBIN 7.4 GM/dL (10.7-15.3); LYMPH % 8.4 % (8-40); MCH 28.9 pg (25.7-33.7); MCHC 32.8 g/dl (32.0-36.0); MEAN CELL VOLUME 88.1 fl (80-96); MEAN PLT VOLUME 8.8 fl (7.5-11.1); PLATELET COUNT 321 10^3/uL (134-434); RBC 2.56 M/mm3 (3.60-5.2); RDW 15.1 % (11.6-15.6); RETICULOCYTES 2.04 % (0.5-1.5); WHITE BLOOD COUNT 12.5 K/mm3 (4.0-10.0)
[2024-01-01 10:02] LABS: POTASSIUM 3.9 mmol/L (3.5-5.1)
[2024-01-01 10:05] LABS: ALBUMIN 2.6 g/dl (3.4-5.0); BLOOD UREA NITROGEN 23.2 mg/dL (7-18); CALCIUM 8.8 mg/dL (8.5-10.1)
[2024-01-01 10:09] LABS: BILIRUBIN,TOTAL 0.8 mg/dL (0.2-1); PHOSPHOROUS 2.8 mg/dL (2.5-4.9)
[2024-01-01 10:10] LABS: TOT PROT 6.1 g/dl (6.4-8.2)
[2024-01-01] MEDS: oxyCODONE HCL 5 MG TABLET PO PRN (12:21)
[2024-01-01] MEDS: METOPROLOL TARTRATE 50 MG TABLET (FP) PO SCH (21:11)
[2024-01-02 10:33] LABS: HEMATOCRIT 22.5 % (32.4-45.2); HEMOGLOBIN 7.4 GM/dL (10.7-15.3); MCH 28.7 pg (25.7-33.7); MCHC 32.7 g/dl (32.0-36.0); MEAN CELL VOLUME 87.7 fl (80-96); MEAN PLT VOLUME 8.6 fl (7.5-11.1); PLATELET COUNT 386 10^3/uL (134-434); RBC 2.56 M/mm3 (3.60-5.2); RDW 15.1 % (11.6-15.6); WHITE BLOOD COUNT 11.1 K/mm3 (4.0-10.0)
[2024-01-02 11:05] LABS: POTASSIUM 4.2 mmol/L (3.5-5.1)
[2024-01-02 11:09] LABS: ALBUMIN 2.4 g/dl (3.4-5.0); BLOOD UREA NITROGEN 22.6 mg/dL (7-18); MAGNESIUM 2.1 mg/dL (1.8-2.4)
[2024-01-02 11:11] LABS: CREATININE 0.9 mg/dL (0.55-1.3)
[2024-01-02 11:13] LABS: BILIRUBIN,TOTAL 0.8 mg/dL (0.2-1); TOT PROT 6.1 g/dl (6.4-8.2)
[2024-01-02] MEDS: IRON SUCROSE INJECTION 100 MG in SODIUM CHLORIDE 95 ML IVPB ONE (14:41)
[2024-01-03 09:10] LABS: HEMATOCRIT 23.8 % (32.4-45.2); HEMOGLOBIN 7.8 GM/dL (10.7-15.3); MCH 28.8 pg (25.7-33.7); MCHC 32.8 g/dl (32.0-36.0); MEAN CELL VOLUME 87.8 fl (80-96); MEAN PLT VOLUME 8.3 fl (7.5-11.1); PLATELET COUNT 434 10^3/uL (134-434); RBC 2.71 M/mm3 (3.60-5.2); WHITE BLOOD COUNT 11.7 K/mm3 (4.0-10.0)
[2024-01-03 09:52] LABS: ALBUMIN 2.4 g/dl (3.4-5.0); MAGNESIUM 2.4 mg/dL (1.8-2.4)
[2024-01-03 09:54] LABS: BLOOD UREA NITROGEN 22.2 mg/dL (7-18)
[2024-01-03 09:55] LABS: PHOSPHOROUS 3.1 mg/dL (2.5-4.9)
[2024-01-03 09:56] LABS: BILIRUBIN,TOTAL 0.8 mg/dL (0.2-1); CREATININE 0.8 mg/dL (0.55-1.3); TOT PROT 6.2 g/dl (6.4-8.2)
[2024-01-03] MEDS: MAGNESIUM HYDROX 2400MG/30ML ORAL SUSPENSION 30 ML CUP PO PRN (10:03)
[2024-01-04 09:35] VITALS: RESP 16
[2024-01-04 15:45] VITALS: BP 150/69; PULSE 74; TEMP 97.8
== END 2024-01-04 17:55 | DRG 481 ==
LOC: JER 12:19 → JERBED 17:04 → J6S 18:18
PROVIDERS: ADMIT Internal Medicine; ATTEND Internal Medicine
PROC: 0QH706Z Insertion of Intramedullary Internal Fixation Device into Left Upper Femur, Open Approach (ICD-10-PCS; principal; 2023-12-30 18:34)
DX: S72.142A Displaced intertrochanteric fracture of left femur, initial encounter for closed fracture (principal); E87.1 Hypo-osmolality and hyponatremia; I10 Essential (primary) hypertension; J45.909 Unspecified asthma, uncomplicated; E78.5 Hyperlipidemia, unspecified; D63.8 Anemia in other chronic diseases classified elsewhere; W19.XXXA Unspecified fall, initial encounter; Y93.9 Activity, unspecified; Y92.89 Other specified places as the place of occurrence of the external cause; Y99.9 Unspecified external cause status
CPT/HCPCS: 36415; 70450-TC; 71045-TC-FY; 72125-TC; 72170-TC-FY; 73502-TC-LT-FY; 73552-TC-LT-FY; 76000-TC-FY; 80053; 81003; 82306; 82728; 83540; 83550; 83735; 84100; 84484; 85025; 85027; 85045; 85610; 86850; 86900; 86901; 87635; 93005; 93010; 94760; 97116-GP; 97162-GP; 99285-25; C1713; J0131; J1756